=== PATIENT | female | born 1945 | race Caucasian/White ===

== ENCOUNTER 2023-12-27 21:06 | Observation (INO) ==
[2023-12-27] MEDS: Ondansetron ODT 4 mg TAB 4 MG TAB SL STA (21:50)
[2023-12-27 22:39] LABS: ABS Lymphocytes 1.3 10^3/uL (1.0-4.8); ABS Monocytes 0.4 10^3/uL (0.0-0.9); ABS Neutrophils 4.5 10^3/uL (1.5-7.6); Eosinophil % 0.8 %; Hematocrit 34.8 % (35-45); Hemoglobin 11.5 g/dL (11.5-14.3); Lymphocyte % 20.6 %; Mean Corpuscular Hemoglobin 30.6 pg (27-33); Mean Corpuscular Hgb Conc 33.2 g/dL (31-36); Mean Corpuscular Volume 92.1 fL (80-97); Mean Platelet Volume 8.3 fL (7.5-11.2); Platelet Count 248 10^3/uL (150-450); Red Blood Count 3.78 10^6/uL (3.63-4.92); Red Cell Distribution Width 13.8 % (12-17); White Blood Count 6.2 10^3/uL (3.8-11.8)
[2023-12-27 22:46] LABS: Albumin 4.3 g/dL (3.2-5.2); Albumin/Globulin Ratio 1.5 (1-3); C Reactive Protein 1.01 mg/L (<8.01); Calcium 9.7 mg/dL (8.6-10.3); Creatinine, Serum 1.05 mg/dL (0.51-0.95); Globulin 2.9 g/dL (2-4); Magnesium 2.1 mg/dL (1.9-2.7); Potassium 3.4 mmol/L (3.5-5.0); Total Bilirubin 0.3 mg/dL (0.2-1.0); Total Protein 7.2 g/dL (6.4-8.9)
[2023-12-27 23:46] LABS: High Sensitivity Troponin 1 Hr 31 pg/mL (<15)
[2023-12-28] MEDS: Iodixanol 320 (CONTRAST) 100 ML SDV IV ONE (03:28)
[2023-12-28 04:03] LABS: Urine Specific Gravity 1.049 (1.002-1.030)
[2023-12-28 04:07] LABS: Urine Appearance Clear; Urine Bacteria Absent /HPF (Absent); Urine Bilirubin Negative (Negative); Urine Blood 1+ (Negative); Urine Color Yellow; Urine Glucose Negative (Negative); Urine Ketones Trace (Negative); Urine Nitrite Negative (Negative); Urine Protein Trace (Negative); Urine Red Blood Cell 1+(3-5/hpf) /HPF (0-Trace); Urine Squamous Epithelial Cell Present /HPF (Absent); Urine Urobilinogen Negative (Negative); Urine White Blood Cell Absent /HPF (0-Trace)
[2023-12-28] MEDS: NS 0.9% 1000 ml BAG 1,000 ML IV ONE (05:45)
[2023-12-28 06:13] LABS: High Sensitivity Troponin 3 Hr 37 pg/mL (<15)
[2023-12-28] MEDS ORDERED: Sulfur Hexaflouride MICROSPHR 25 MG VIAL IV PRN (10:35)
[2023-12-28] MEDS: Enoxaparin 40 MG/0.4 ML SYR SUBCUT SCH (12:43)
[2023-12-28 17:19] VITALS: BP 171/73
== END 2023-12-28 18:24 | disposition home or self-care (01) ==
LOC: EDHOLD 21:06 → ED 21:06 → MEDTELE 12-28 15:38
PROVIDERS: ADMIT Internal Medicine; ATTEND Internal Medicine